=== PATIENT | female | born 1975 | race Caucasian/White ===

== ENCOUNTER 2021-07-11 04:22 | Emergency (ER) | payer OTHER ==
[~2021-07-11 04:22] MED LIST: BACTRIM DS TAB1 EACH PO; BUPRENORPHIN-N1 EACH SL; CATAPRES 0.1MG0.1 MG PO; CIPRO500 MG PO; FEOSOL325 MG PO; FERRO-TIME325 MG PO; HYDROCHLOROTH12.5 M1 PO; KEFLEX500 MG PO; NORVASC 5 MG TAB5 MG PO; PRINIVIL20 MG PO; PROVERA10 MG PO; ZESTRIL40 MG PO
[2021-07-11 05:13] LABS: HEMOGLOBIN 14.9 gm/dl (12.3-15.3); RED BLOOD COUNT 4.61 M/UL (4.00-5.10); WHITE BLOOD COUNT 10.7 K/UL (4.5-11.0)
[2021-07-11 05:49] LABS: BUN/CREATININE RATIO 18 (0-10)
== END 2021-07-11 05:30 | disposition left against medical advice (07) ==
LOC: ER1 04:22
PROVIDERS: Family Medicine
DX: I10 Essential (primary) hypertension (principal); F17.210 Nicotine dependence, cigarettes, uncomplicated
CPT/HCPCS: 80053; 82550; 82553; 83874; 84439; 84443; 84484; 84703; 85025; 93005; 99284

== ENCOUNTER 2021-08-02 10:43 | Emergency (ER) | payer OTHER | END 2021-08-02 11:10 | disposition left against medical advice (07) | LOC: ER1 10:43 | DX: R56.9 Unspecified convulsions (principal); I10 Essential (primary) hypertension; F15.90 Other stimulant use, unspecified, uncomplicated; F17.200 Nicotine dependence, unspecified, uncomplicated | CPT/HCPCS: 99284 ==

== ENCOUNTER 2021-08-31 23:47 | Emergency (ER) | payer OTHER ==
[2021-09-01 00:44] LABS: RED BLOOD COUNT 5.08 M/UL (4.00-5.10); WHITE BLOOD COUNT 11.5 K/UL (4.5-11.0)
[2021-09-01 01:11] LABS: BUN/CREATININE RATIO 17 (0-10)
== END 2021-09-01 03:57 | disposition home or self-care (01) ==
LOC: ER1 23:47
PROVIDERS: Emergency Medicine
DX: R56.9 Unspecified convulsions (principal); R74.02 Elevation of levels of lactic acid dehydrogenase [LDH]; F15.10 Other stimulant abuse, uncomplicated; Z20.822 Contact with and (suspected) exposure to COVID-19
CPT/HCPCS: 70450; 80053; 80307; 82550; 82553; 83605; 83735; 83874; 84484; 85025; 93005; 99285; J7030; U0002

== ENCOUNTER 2021-11-11 01:29 | Emergency (ER) | payer OTHER ==
[2021-11-11 05:50] LABS: BUN/CREATININE RATIO 20 (0-10)
[2021-11-11 05:56] LABS: HEMOGLOBIN 13.9 gm/dl (12.3-15.3); RED BLOOD COUNT 4.37 M/UL (4.00-5.10)
[2021-11-11] MEDS ORDERED: KEPPRA 250 MG250 MG GT (06:11)
[2021-11-11] MEDS ORDERED: KEFLEX CAP 250250 MG PO (06:26)
== END 2021-11-11 09:57 | disposition home or self-care (01) ==
LOC: ER1 01:29
PROVIDERS: Family Medicine
DX: R56.9 Unspecified convulsions (principal); N39.0 Urinary tract infection, site not specified; F19.10 Other psychoactive substance abuse, uncomplicated; D64.9 Anemia, unspecified; I10 Essential (primary) hypertension
CPT/HCPCS: 51701; 70450; 71045; 80053; 80307; 81001; 82550; 82553; 84484; 85025; 87077; 87086; 87186; 96374; 96375; 99284; J0360; J1953